=== PATIENT | female | born 1985 | race Caucasian/White ===

== ENCOUNTER → 2020-11-07 | Outpatient (CLI) | payer BC ==
[~2020-11-07] MED LIST: COLACE 100MG C100 MG PO; FAMOTIDINE20 MG PO; HYDROCODON-ACE1 EAC6 PO; IBUPROFEN600 MG PO; PRENATABS FA T1 EACH PO
[2020-11-07 15:07] LABS: RED BLOOD COUNT 3.45 M/UL (4.00-5.10); WHITE BLOOD COUNT 8.5 K/UL (4.5-11.0)
== END ==
LOC: GENOP 14:10
PROVIDERS: Obstetrics & Gynecology
DX: Z53.8 Procedure and treatment not carried out for other reasons (principal)
CPT/HCPCS: 36415; 81001; 85025

== ENCOUNTER 2020-11-10 09:00 | Inpatient (IN) | payer BC ==
[~2020-11-10] VITALS: Ht 162.6 cm; Wt 87.1 kg
[2020-11-10] MEDS ORDERED: FAMOTIDINE20 MG PO (11:54)
[2020-11-10] MEDS ORDERED: PRENATABS FA T1 EACH PO (11:55)
[2020-11-10] MEDS ORDERED: COLACE 100MG C100 MG PO (13:10)
[2020-11-10] MEDS ORDERED: HYDROCODON-ACE1 EAC6 PO (13:10)
[2020-11-10] MEDS ORDERED: IBUPROFEN600 MG PO (13:10)
[2020-11-10 13:35] LABS: BUN/CREATININE RATIO 11 (0-10)
[2020-11-11 06:25] LABS: HEMOGLOBIN 10.7 gm/dl (12.3-15.3)
== END 2020-11-12 15:03 | disposition home or self-care (01) | DRG 788 ==
LOC: OB 10:58
PROVIDERS: ADMIT Obstetrics & Gynecology
PROC: 4A1HXCZ Monitoring of Products of Conception, Cardiac Rate, External Approach (ICD-10-PCS; 2020-11-10)
PROC: 3E02340 Introduction of Influenza Vaccine into Muscle, Percutaneous Approach (ICD-10-PCS; 2020-11-10)
PROC: 10D00Z1 Extraction of Products of Conception, Low, Open Approach (ICD-10-PCS; principal; 2020-11-10 10:30)
DX: O24.420 Gestational diabetes mellitus in childbirth, diet controlled (principal); O99.824 Streptococcus B carrier state complicating childbirth; Z20.822 Contact with and (suspected) exposure to COVID-19; O34.211 Maternal care for low transverse scar from previous cesarean delivery; O99.214 Obesity complicating childbirth; E66.9 Obesity, unspecified; Z3A.39 39 weeks gestation of pregnancy; Z37.0 Single live birth; Z90.49 Acquired absence of other specified parts of digestive tract; Z98.818 Other dental procedure status; Z23 Encounter for immunization
CPT/HCPCS: 36415; 80053; 81001; 82800; 82962; 85014; 85018; 85025; 85461; 86850; 86900; 86901; 90715; C9113; J0690; J1650; J1885; J2274; J2405; J2590; J2790; J3010; J7120; U0003